=== PATIENT | female | born 1995 | race Caucasian/White ===

== ENCOUNTER 2018-11-04 11:51 | Inpatient (IN) ==
[2018-11-04] MEDS ORDERED: ONDANSETRON 4 MG/2 ML VIAL IV PRN (12:16)
[2018-11-04] MEDS: LACTATED RINGERS 1,000 ML IV SCH (12:19)
[2018-11-04 12:37] LABS: Basophils % 0.1 % (0.0-0.8); Eosinophils % 0.4 % (0.00-10.9); Hematocrit 37.6 VOL% (35.7-47.0); Hemoglobin 12.6 GM/DL (12.0-16.0); Immature Granulocytes % 0.4 %; Immature Granulocytes Absolute 0.03 #; Lymphocytes # 1.2 10*3/uL (1.4-4.0); Lymphocytes % 15.7 % (21.3-54.2); Mean Corpuscular HGB Conc 33.5 GM/DL (32-36); Mean Corpuscular Hemoglobin 29 PG (27-34); Mean Corpuscular Volume 87.9 FL (87-102); Mean Platelet Volume 10.5 FL (9.6-12.0); Monocytes # 0.9 10*3/uL (0.11-0.8); Monocytes % 11.4 % (1.7-12.7); Neutrophils # 5.5 10*3/uL (1.4-7.4); Platelet Count 280 T/CUMM (130-400); Red Blood Count 4.28 MC/CUMM (3.8-5.5); Red Cell Distribution Width 12.9 % (9.3-17.3); White Blood Count 7.6 T/CUMM (4-12)
[2018-11-04 12:46] LABS: INR 0.9; PT Patient Result 9.7 SECS; Partial Thromboplastin Time 27.4 SECS (0-40)
[2018-11-04 12:58] LABS: Alanine Aminotransferase 21 U/L (13-56); Alkaline Phosphatase 107 U/L (45-117); Aspartate Amino Transferase 12 U/L (0-37); Bilirubin,Total < 0.39 MG/DL (0.2-1.0); Blood Urea Nitrogen 7 MG/DL (7-18); Calcium 8.6 MG/DL (8.5-10.1); Glucose 77 MG/DL (74-106); Potassium 3.9 MMOL/L (3.5-5.1); Sodium 136 MMOL/L (136-145); Total Protein 7.4 G/DL (6.4-8.3); Uric Acid 3.8 MG/DL (2.6-6.0)
[2018-11-04] MEDS ORDERED: hydrALAZINE 20 MG/1 ML VIAL IV PRN (13:10)
[2018-11-04] MEDS ORDERED: MAGNESIUM SULF RIDER 4 GM in PREMIX 1 EACH IV ONE (13:10)
[2018-11-04] MEDS: MAGNESIUM SULF DRIP 40 GM/1,000 ML ML IV SCH (14:23)
[2018-11-04 16:16] LABS: Apearance,Urine CLEAR (Clear); Bilirubin,Urine Negative (Negative); Blood, Urine Negative (Negative); Glucose,Urine (UA) Negative (Negative); Ketones,Urine Negative (Negative); Mucus,Urine Occasional /LPF (Occasional); Nitrite,Urine Negative (Negative); Protein,Urine Negative; RBC,Urine 1 /HPF (0-4); Squamous Epithelial Cell,Urine Occasional /HPF (0-10); Urine Color Straw (Yellow); Urine Specific Gravity 1.006 (1.001-1.035); Urine Urobilinogen < 2.0 EU/DL (0.2-1.0)
[2018-11-04] MEDS ORDERED: ACETAMINOPHEN 500 MG TABLET PO PRN (17:34)
[2018-11-05] MEDS: MEPERIDINE 50 MG/1 ML VIAL IV PRN ×2 (01:09→05:54)
[2018-11-05] MEDS: LACTATED RINGERS 1,000 ML IV SCH (05:54)
[2018-11-05] MEDS: MAGNESIUM SULF DRIP 40 GM/1,000 ML ML IV SCH (09:27)
[2018-11-05] MEDS ORDERED: FAMOTIDINE 20 MG/2 ML VIAL IV ONE (09:36)
[2018-11-05] MEDS ORDERED: ceFAZolin 3,000 MG in SYRINGE 1 EACH IV ONE (09:36)
[2018-11-05] MEDS ORDERED: CITRIC ACID/SODIUM CITRATE 30 ML UDCUP PO ONE (09:36)
[2018-11-05] MEDS ORDERED: OXYTOCIN/LR 20 UNIT/1,000 ML BAG IV ONE ×2 (11:00→12:41)
[2018-11-05] MEDS ORDERED: ONDANSETRON 4 MG/2 ML VIAL IV PRN (12:41)
[2018-11-05] MEDS ORDERED: MAGNESIUM HYDROXIDE SUSP 30 ML UDCUP PO PRN (12:41)
[2018-11-05] MEDS ORDERED: ACETAMINOPHEN 325 MG TABLET PO PRN (12:41)
[2018-11-05] MEDS ORDERED: SIMETHICONE CHEW 80 MG TABLET PO PRN (12:41)
[2018-11-05] MEDS ORDERED: RHO(D) IMMUNE GLOBULIN 300 MCG SYRINGE IM ONE (12:41)
[2018-11-05] MEDS ORDERED: LACTATED RINGERS 1,000 ML IV SCH (13:00)
[2018-11-05] MEDS ORDERED: PHENYLEPHRINE 1 MG/10 ML SYRINGE IV ONE (13:14)
[2018-11-05] MEDS ORDERED: ONDANSETRON 4 MG/2 ML VIAL ONE ×2 (13:14)
[2018-11-05] MEDS ORDERED: MORPHINE 10 MG/10 ML VIAL ONE (13:14)
[2018-11-05] MEDS ORDERED: diphenhydrAMINE 50 MG/1 ML VIAL IV PRN (14:44)
[2018-11-05] MEDS: ceFAZolin 1,000 MG in SYRINGE 1 EACH IV SCH ×2 (17:14→20:41)
[2018-11-05] MEDS: IBUPROFEN 800 MG TABLET PO PRN (17:54)
[2018-11-05] MEDS: DOCUSATE SODIUM 100 MG CAPSULE PO SCH (20:36)
[2018-11-06] MEDS: MAGNESIUM SULF DRIP 40 GM/1,000 ML ML IV SCH (03:31)
[2018-11-06] MEDS: IBUPROFEN 800 MG TABLET PO PRN ×2 (03:32→20:06)
[2018-11-06] MEDS ORDERED: ceFAZolin 1,000 MG in SYRINGE 1 EACH IV ONE (05:30)
[2018-11-06] MEDS: MULTIVITAMIN (PRENATAL) TABLET PO SCH (09:20)
[2018-11-06] MEDS: DOCUSATE SODIUM 100 MG CAPSULE PO SCH ×2 (09:20→20:06)
[2018-11-06 18:28] LABS: Basophils % 0.1 % (0.0-0.8); Eosinophils % 0.2 % (0.00-10.9); Hematocrit 33.8 VOL% (35.7-47.0); Immature Granulocytes % 0.4 %; Immature Granulocytes Absolute 0.04 #; Lymphocytes # 1.3 10*3/uL (1.4-4.0); Mean Corpuscular HGB Conc 32.5 GM/DL (32-36); Mean Corpuscular Hemoglobin 29 PG (27-34); Mean Corpuscular Volume 88.9 FL (87-102); Mean Platelet Volume 10.4 FL (9.6-12.0); Monocytes # 0.8 10*3/uL (0.11-0.8); Monocytes % 9.1 % (1.7-12.7); Neutrophils # 6.9 10*3/uL (1.4-7.4); Neutrophils % 76.2 % (38.7-73.9); Platelet Count 291 T/CUMM (130-400); Red Cell Distribution Width 13.2 % (9.3-17.3); White Blood Count 9.1 T/CUMM (4-12)
[2018-11-07] MEDS: IBUPROFEN 800 MG TABLET PO PRN (07:28)
[2018-11-07] MEDS: DOCUSATE SODIUM 100 MG CAPSULE PO SCH (08:49)
[2018-11-07] MEDS: MULTIVITAMIN (PRENATAL) TABLET PO SCH (08:49)
[2018-11-07 09:47] VITALS: BP 148/81
[2018-11-07] MEDS ORDERED: LABETALOL 100 MG TABLET PO SCH (11:00)
== END 2018-11-07 11:20 | disposition home or self-care (01) | DRG 540 ==
LOC: N.LDOUT 11:51 → N.LD 11:54 → N.OB 11-06 15:04
PROVIDERS: ADMIT Obstetrics & Gynecology; ATTEND Obstetrics & Gynecology
PROC: LDCSECT (ICD-10-PCS; 2018-11-05 11:00)